=== PATIENT | female | born 1970 | race Hispanic/Latino ===

== ENCOUNTER → 2020-06-01 | Day surgery (SDC) | payer BC, OTHER ==
[2020-05-28 16:40] LABS: BASOPHILS % 0.5 % (0.0-1.0); EOSINOPHILS # (AUTO) 0.2 (0.0-0.4); EOSINOPHILS % 2.7 % (0.0-6.0); HEMATOCRIT 35.1 % (34.2-44.1); HEMOGLOBIN 11.2 g/dL (12.0-16.0); LYMPHOCYTES # (AUTO) 2.8 (1.0-3.2); MEAN CORPUSCULAR HEMOGLOBIN 28.6 pg (28-32); MEAN CORPUSCULAR HGB CONC 31.9 g/dL (31-35); MEAN CORPUSCULAR VOLUME 89.8 fL (81-99); MONOCYTES # (AUTO) 0.5 (0.2-0.8); MONOCYTES % 6.6 % (4.4-11.3); NEUTROPHILS # (AUTO) 3.8 (2.1-6.9); NEUTROPHILS % 51.9 % (38.7-80.0); PLATELET COUNT 197 x10e3/uL (140-360); RED BLOOD COUNT 3.91 x10e6/uL (3.6-5.1); RED CELL DISTRIBUTION WIDTH 15.2 % (11.7-14.4)
[2020-05-28 16:58] LABS: ALANINE AMINOTRANSFERASE 21 IU/L (0-55); ALBUMIN 3.5 g/dL (3.5-5.0); ALKALINE PHOSPHATASE 85 IU/L (40-150); ANION GAP 12.8 mmol/L (8-16); BLOOD UREA NITROGEN 8 mg/dL (7-26); BUN/CREATININE RATIO 11 (6-25); CALCIUM 8.2 mg/dL (8.4-10.2); CARBON DIOXIDE 24 mmol/L (22-29); CHLORIDE 106 mmol/L (98-107); CREATININE, SERUM 0.74 mg/dL (0.57-1.11); EST GLOMERULAR FILTRATION RATE > 60 ML/MIN (60-); GLUCOSE 108 mg/dL (74-118); POTASSIUM 3.8 mmol/L (3.5-5.1); SODIUM 139 mmol/L (136-145)
[~2020-06-01] MED LIST: BUPIVACAINE 0.25%/EPI 30ML SDV INJ ONE; DEXAMETHASONE SOD PHOS INJ 4 MG/ML VIAL ONE; FENTANYL CITRATE/PF 100MCG/2 ML INJ ONE; HYDROMORPHONE 1MG/1ML INJ ONE; LEVOTHYROXINE50 MCG PO; LIDOCAINE HCL 2% LOCAL INJ 5 ML SDV VIAL INJ ONE; ONDANSETRON HCL INJ 2MG/ML 2ML 2 MG/ML VIAL ONE; PROPOFOL IV EMULSION 10 MG/ML 20 ML VIAL ONE; SEVOFLURANE INHAL SOLN 250 ML PEN BTL ONE
--- NOTE | 2020-06-01 15:04 | Operative Report ---
DATE OF PROCEDURE: 06/01/2020 SURGEON: Basim Cain MD PREOPERATIVE DIAGNOSES: Cholecystitis, cholelithiasis, and ventral hernia. POSTOPERATIVE DIAGNOSES: Cholecystitis, cholelithiasis, and ventral hernia. OPERATIONS PERFORMED: Laparoscopic cholecystectomy and repair of ventral hernia. ANESTHESIA: General. COMPLICATIONS: None. ESTIMATED BLOOD LOSS: Minimal. DESCRIPTION OF PROCEDURE: With the patient lying in bed in the supine position under good general endotracheal anesthesia, the abdomen was prepped with Betadine solution and draped in the usual manner. An incision was made in the lower abdomen over the palpable incarcerated ventral hernia. This was carried down through the subcutaneous tissue. The hernia sac was identified and the hernia sac was then dissected all the way around. The umbilicus was also at this point dissected. The hernia sac was then opened and the contents were reduced back to the intra-abdominal cavity. An 11 mm trocar was then placed into the hernia sac and pneumoperitoneum was established without any difficulty. A 10 mm videoscope was placed into the intra-abdominal cavity under direct vision. Three 5 mm trocars were placed in the right subcostal region. Video laparoscopy at this point revealed a gallbladder that was contracted and totally full of large stones. It was totally decompressed from the chronic obstruction. The rest of the abdominal exploration was otherwise within normal limits. All the adhesions of the gallbladder was slowly and carefully taken down. The peritoneum overlying the neck of the gallbladder was then opened and the cystic duct was identified. The cystic duct was then circumferentially dissected away from the common duct, doubly clipped, and divided. The cystic artery was similarly doubly clipped and divided. The gallbladder was then slowly and carefully taken off the liver bed using the cautery scissors and perfect hemostasis was ascertained. The gallbladder was then placed in a pouch and removed through the ventral hernia sac. After this was done, video laparoscopy was then again carried out. The liver bed was found to be perfectly dry. All the excess fluid was aspirated. The pneumoperitoneum was evacuated and all the trocars were removed under direct vision. The midline fascia at the level of the hernia sac was then totally dissected in all directions in order to make sure that we had good normal fascia all the way around and the ventral hernia defect was then closed transversely using interrupted sutures of 0 Ethibond. This gave us a satisfactory closure without any tension. The whole area was thoroughly irrigated. Perfect hemostasis was ascertained. All layers were then infiltrated on the way out with solution of 0.25% Marcaine. The umbilicus was then tacked back down to the midline fascia. The subcutaneous tissue was approximated with 3-0 Vicryl and the skin was closed with interrupted vertical mattress sutures of 3-0 silk. Benzoin and Steri-Strips were utilized for the other trocar sites. Dressings were applied. The sponge, lap, and needle count was correct. The patient tolerated both procedures well and returned to the recovery room in stable condition. MD GEORGIA Guzman/RUSTY /[id number]
[2020-06-01 15:15] VITALS: BP 108/65
== END | disposition home or self-care (01) ==
LOC: OR 08:11
PROVIDERS: ATTEND Surgery
DX: K80.10 Calculus of gallbladder with chronic cholecystitis without obstruction (principal); K43.6 Other and unspecified ventral hernia with obstruction, without gangrene; K82.8 Other specified diseases of gallbladder; E03.9 Hypothyroidism, unspecified; M54.2 Cervicalgia; M54.9 Dorsalgia, unspecified; Z88.0 Allergy status to penicillin; Z01.810 Encounter for preprocedural cardiovascular examination; Z01.812 Encounter for preprocedural laboratory examination; Z11.59 Encounter for screening for other viral diseases; Z87.442 Personal history of urinary calculi
CPT/HCPCS: 36415; 47562; 49561; 80053; 81025; 85025; 88304; 93005; C1766; J1100; J1170; J2001; J2405; J2704; J3010; U0002